=== PATIENT | male | born 1985 | race Caucasian/White ===

== ENCOUNTER 2018-09-12 17:30 | Observation (INO) | payer OTHER ==
[~2018-09-12] VITALS: Ht 177.8 cm; Wt 72.6 kg
--- OUTSIDE RECORDS SUMMARY | 2018-09-12 17:33 | XMS REPORT | Summary of Care ---
Author Author Blanca Cruz M.A. Unknown Address Unknown Phone Unavailable Care Team Providers Care Policy Analyst Name Role Phone RENATE Chirinos.Shelby., CHICHI Unavailable Unavailable OLAMIDE Castelan, ROSA Unavailable Unavailable KAR Schneider, AWA Unavailable Unavailable XU Castelan, CLAUDIA Unavailable Unavailable OLAMIDE JOHNS, ROSA Becker Unavailable Unavailable ANDREW JOHNS, EVA Robles Unavailable Unavailable JEF JOHNS CA, EDUARDO KELLEY Unavailable Unavailable KAR ANTONIO, AWA Unavailable Unavailable Unavailable Unavailable Functional Status Name Dates Details Functional status health issues are not documented Status: Name Dates Details Cognitive status health issues are not documented Status: Problems Name Dates Details Lumbar sprain (847.2, S33.5XXA) Status: Active Cervical sprain (847.0, S13.9XXA) Status: Active Psoriasis (696.1, L40.9) Status: Active Eyelid eczema (373.31, H01.139) Status: Active History of Rotator cuff (capsule) sprain (840.4, S43.429A) Status: Resolved Seasonal allergic rhinitis due to pollen (477.0, J30.1) Status: Active GERD (gastroesophageal reflux disease) (530.81, K21.9) Status: Active History of chest pain (V13.89, Z87.898) Status: Active Elevated blood pressure reading (796.2, R03.0) Status: Active Hypertension (401.9, I10) Status: Active Tachycardia (785.0, R00.0) Status: Active Shingles (053.9, B02.9) Status: Active Pharyngitis with viral syndrome (462, J02.9) Status: Active Left nephrolithiasis (592.0, N20.0) Status: Active Medications Name Dates Details ZyrTEC Allergy 10 MG Oral Capsule TAKE CAPSULE PRN Active Aquaphor External Ointment APPLY SPARINGLY TO AFFECTED AREA(S) 3 TIMES A DAY * Quantity: 1 Refills: 0 DEWITT N.P., CHICHI * Start : 22-Sep-2016 Active 50 GM Tube hydroCHLOROthiazide 12.5 MG Oral Capsule TAKE 1 CAPSULE ONCE DAILY. * Quantity: 90 Refills: 2 CLAUDIA MCNAIR M.D. * Start : 27-Mar-2017 Active Fluticasone Propionate 50 MCG/ACT Nasal Suspension USE 2 SPRAYS IN EACH NOSTRIL ONCE DAILY * Quantity: 1 Refills: 1 KAR Chirinos.PAWA Abarca * Start : 29-Aug-2018 Active 16 GM Bottle Benzonatate 100 MG Oral Capsule 1-2 caps as needed every 8 hours wit mucinex DM or Delsym OTC. * Quantity: 30 Refills: 1 KAR N.PAWA Abarca * Start : 29-Aug-2018 Active Acetaminophen-Codeine #3 300-30 MG Oral Tablet TAKE 1 TABLET 3 TIMES DAILY NEEDED FOR PAIN. * Quantity: 30 Refills: 0 OLAMIDE Mccarthy.Dickson, ROSA * Start : 12-Sep-2018 Active levoFLOXacin 500 MG Oral Tablet TAKE 1 TABLET DAILY. * Quantity: 7 Refills: 0 OLAMIDE Mccarthy.Dickson, ROSA * Start : 12-Sep-2018 End : 19-Sep-2018 Active Tamsulosin HCl - 0.4 MG Oral Capsule TAKE 1 CAPSULE DAILY * Quantity: 30 Refills: 0 OLAMIDE M.DTevin, ROSA * Start : 12-Sep-2018 Active Allergies and Adverse Reactions Name Dates Details No Known Drug Allergies (Allergy) Status: Active Past Medical History Name Dates Details Cervical sprain (847.0, S13.9XXA) Status: Active Psoriasis (696.1, L40.9) Status: Active History of bronchitis (V12.69, Z87.09) Status: Resolved History of chest pain (V13.89, Z87.898) Status: Resolved History of fever (V13.89, Z87.898) Status: Resolved History of Palpitations (785.1, R00.2) Status: Resolved History of Rotator cuff (capsule) sprain (840.4, S43.429A) Status: Resolved History of Sinusitis (473.9, J32.9) Status: Resolved History of Strep throat exposure (V01.89, Z20.818) Status: Resolved History of Viral URI (465.9, J06.9) Status: Resolved Procedures Procedure Dates Details CT Renal Stone 39163 Date: 12-Sep-2018 History of Tonsillectomy With Adenoidectomy Completed History of Renal Lithotripsy Completed Immunization Name Dates Details Fluzone Quadrivalent Intramuscular Suspension Lot #: [id number] on: 18-Jan-2015 Family History Name Dates Details Family history of Stroke Complications Status: Active Name Dates Details Family history of Hypertension (V17.49) Status: Active Family history of Diabetes Mellitus (V18.0) Status: Active Family history of cardiovascular disease (V17.49, Z82.49) Status: Active Name Dates Details Family history of Hypertension (V17.49) Status: Active Social History Name Dates Details - Status: Name Dates Details Never smoker Vital Signs Date Test Result Details 54-Ksf-49310:42 BP Systolic 130 mm[Hg] Status: Comments: Location: LUE; Position: Sitting BP Diastolic 80 mm[Hg] Status: Comments: Location: LUE; Position: Sitting Height 69 in Status: Weight 158 lb Status: Body Mass Index Calculated 23.33 kg/m2 Status: Body Surface Area Calculated 1.87 m2 Status: Temperature 98 f Status: Comments: Method: Temporal Respiration Rate 16 /min Status: Heart Rate 100 /min Status: 4-Zro-[id number]:06 Physical Findings 1 Status: Comments: PHQ-9 Adult Depression Screening 29-Aug-20189:42 BP Systolic 115 mm[Hg] Status: Comments: Location: LUE; Position: Sitting BP Diastolic 80 mm[Hg] Status: Comments: Location: LUE; Position: Sitting Height 69 in Status: Weight 157 lb Status: Body Mass Index Calculated 23.18 kg/m2 Status: Body Surface Area Calculated 1.86 m2 Status: Temperature 98.3 f Status: Comments: Method: Temporal Respiration Rate 16 /min Status: Heart Rate 102 /min Status: Comments: Location: L Brachial Artery; Physical Findings 0 Status: Comments: Alcohol Screen - How many times in the past yr have you had 5 (for M) or 4 (for F) or 4 (for all > 65yrs) or more drinks in a day? Results Date Description Value Details 9-Ouy-041922:08 [O] Streptococcus Test Rapid (In Office) Group A Strep Screen neg (Normal) Plan of Care Name Dates Details Planned Observations Planned Goals not documented Interventions Provided Medication Changes* Acetaminophen-Codeine #3 300-30 MG Oral Tablet - Start * levoFLOXacin 500 MG Oral Tablet - Start * Tamsulosin HCl - 0.4 MG Oral Capsule - Start Labs/Procedures/Imaging* CT Renal Stone 60075; To Be Done: 12 Sep 2018 Medications/Immunizations Administered* Promethazine HCl 25 MG/ML Injection Solution Plan* Hydration * ER precautions * will pickler helper pt from office and take his home * F/u prn Instructions Name Dates Details Instructions not documented Encounters Appointment; CHICHI DEWITT NP Encounter Diagnosis: Problem not documented On: 22-Sep-2016 15:15 Appointment; EMILY KAT M.D. Encounter Diagnosis: Problem not documented On: 27-Mar-2017 8:30 Appointment; CLAUDIA MCNAIR M.D. Encounter Diagnosis: Problem not documented On: 28-Mar-2017 14:20 Appointment; MANDISHORE-MS, STRESS Encounter Diagnosis: Problem not documented On: 02-May-2017 15:00 Appointment; [place]-MS, STRESS Encounter Diagnosis: Problem not documented On: 23-May-2017 14:00 Appointment; CLAUDIA MCNAIR M.D. Encounter Diagnosis: Problem not documented On: 23-May-2017 15:20 Appointment; AWA LAKHANI NP Encounter Diagnosis: Problem not documented On: 05-Jun-2017 9:00 Appointment; ANAMARIA HARRISON P.A. Encounter Diagnosis: Problem not documented On: 25-Oct-2017 13:15 Appointment; CHARMAINE CARTER M.D. Encounter Diagnosis: Problem not documented On: 11-Jan-2018 15:45 Appointment; CHARMAINE CARTER M.D. Encounter Diagnosis: Problem not documented On: 18-Jan-2018 13:45 Appointment; ROSA QUIÑONEZ M.D. Encounter Diagnosis: Problem not documented On: 05-Mar-2018 10:00 Appointment; ROSA QUIÑONEZ M.D. Encounter Diagnosis: Problem not documented On: 28-Mar-2018 11:15 Appointment; CLAUDIA MCNAIR M.D. Encounter Diagnosis: Problem not documented On: 18-Jun-2018 12:40 Appointment; AWA LAKHANI NP Encounter Diagnosis: Problem not documented On: 26-Jun-2018 14:30 Appointment; ROSA QUIÑONEZ M.D. Encounter Diagnosis: Problem not documented On: 06-Aug-2018 11:15 Appointment; AWA LAKHANI NP Encounter Diagnosis: Problem not documented On: 29-Aug-2018 9:30 Appointment; ROSA QUIÑONEZ M.D. Encounter Diagnosis: Problem not documented On: 12-Sep-2018 9:30
[2018-09-12] MEDS ORDERED: KETOROLAC TROMETHAMINE 60 MG/2 ML VIAL ONE (17:43)
[2018-09-12] MEDS ORDERED: PROMETHAZINE HCL (IM) 25 MG/ML VIAL ONE (17:45)
[2018-09-12] MEDS ORDERED: PROMETHAZINE HCL (IM) 25 MG/ML VIAL IM ONE (17:45)
[2018-09-12] MEDS ORDERED: KETOROLAC TROMETHAMINE 60 MG/2 ML VIAL IM ONE (17:45)
--- NOTE | 2018-09-12 17:54 | NUR ---
PER NO IV NEEDED. UA/MEDS/CT.
--- NOTE | 2018-09-12 19:13 | Diagnostic Imaging Report ---
EXAM: CT Abdomen and Pelvis WITHOUT contrast INDICATION: Left-sided pain. COMPARISON: None. TECHNIQUE: Abdomen and pelvis were scanned utilizing a multidetector helical scanner from the lung base to the pubic symphysis without administration of IV contrast. Absence of intravenous contrast decreases sensitivity for detection of focal lesions and vascular pathology. Coronal and sagittal reformations were obtained. Routine protocol was performed. IV CONTRAST: None ORAL CONTRAST: Water COMPLICATIONS: None RADIATION DOSE: Total DLP: 620.59 mGy*cm Estimated effective dose: (DLP x 0.015 x size factor) mSv CTDIvol has been reviewed. It is below the limits set by the Radiation Protocol Committee (RPC). FINDINGS: LINES and TUBES: None. LOWER THORAX: Unremarkable HEPATOBILIARY: Unenhanced liver is unremarkable. No biliary ductal dilation. GALLBLADDER: Several gallstones. No wall thickening. SPLEEN: No splenomegaly. PANCREAS: No focal masses or ductal dilatation. ADRENALS: No adrenal nodules KIDNEYS/URETERS: Moderate to severe left perinephric fat stranding and mild left hydroureteronephrosis, caused by an obstructive 5 mm left ureterovesical junction calculus. No right hydronephrosis. 3 mm right renal inferior pole calculus. GI TRACT: No abnormal distention, wall thickening, or evidence of bowel obstruction. Appendix is normal. PELVIC ORGANS/BLADDER: Unremarkable. LYMPH NODES: No lymphadenopathy. VESSELS: Unremarkable. PERITONEUM / RETROPERITONEUM: No free air or fluid. BONES: Unremarkable. SOFT TISSUES: Unremarkable. IMPRESSION: 1. 5 mm left ureterovesical junction obstructing calculus with mild to moderate left hydroureteronephrosis, perinephric and perivesical fat stranding. 2. 3 mm right renal nonobstructive calculus. 3. Cholelithiasis without CT evidence of cholecystitis. Signed by: Dr. Jesus Manuel Carrion MD on 09/12/2018 7:09 PM
[2018-09-12] MEDS ORDERED: KETOROLAC TROMETHAMINE 30 MG/ML VIAL IV PRN (20:00)
[2018-09-12] MEDS ORDERED: MORPHINE SULFATE 2 MG/ML SYR 1ML IV PRN (20:00)
--- OUTSIDE RECORDS SUMMARY | 2018-09-12 20:12 | XMS REPORT ---
Author Author [facility] Address Unknown Phone Unavailable Care Team Providers Care Sheeter Helper Name Role Phone Evan JIMENEZ Unavailable Unavailable Problems This patient has no known problems. Allergies, Adverse Reactions, Alerts This patient has no known allergies or adverse reactions. Medications This patient has no known medications. Results Test Description Test Time Test Comments Text Results Atomic Results Result Comments CT ABD/PEL WO CONTRAST-HOPD 2018-09-12 18:54:00 [facility] [address] [place] [address] Patient Name: MAX DE LEON MR #: [id number] : 1985 Age/Sex: 33/M Req #: [id number] Adm Physician: Ordered by: SYLVIE JIMENEZ MD Report #: [id number] Location: [facility] Room/Bed: Procedure: [id number] HOPD/CT ABD/PEL WO CONTRAST-HOPD Exam Date: 09/12/18 Exam Time: 1810 REPORT STATUS: Signed EXAM: CT Abdomen and Pelvis WITHOUT contrast INDICATION: Left-sided pain. COMPARISON: None. TECHNIQUE: Abdomen and pelvis were scanned utilizing a multidetector helical scanner from the lung base to the pubic symphysis without administration of IV contrast. Absence of intravenous contrast decreases sensitivity for detection of focal lesions and vascular pathology. Coronal and sagittal reformations were obtained. Routine protocol was performed. IV CONTRAST: None ORAL CONTRAST: Water COMPLICATIONS: None RADIATION DOSE: Total DLP: 620.59 mGy*cm Estimated effective dose: (DLP x 0.015 x size factor) mSv CTDIvol has been reviewed. It is below the limits set by the Radiation Protocol Committee (RPC). FINDINGS: LINES and TUBES: None. LOWER THORAX: Unremarkable HEPATOBILIARY: Unenhanced liver is unremarkable. No biliary ductal dilation. GALLBLADDER: Several gallstones. No wall thickening. SPLEEN: No splenomegaly. PANCREAS: No focal masses or ductal dilatation. ADRENALS: No adrenal nodules KIDNEYS/URETERS: Moderate to severe left perinephric fat stranding and mild left hydroureteronephrosis, caused by an obstructive 5 mm left ureterovesical junction calculus. No right hydronephrosis. 3 mm right renal inferior pole calculus. GI TRACT: No abnormal distention, wall thickening, or evidence of bowel obstruction. Appendix is normal. PELVIC ORGANS/BLADDER: Unremarkable. LYMPH NODES: No lymphadenopathy. VESSELS: Unremarkable. PERITONEUM / RETROPERITONEUM: No free air or fluid. BONES: Unremarkable. SOFT TISSUES: Unremarkable. IMPRESSION: 1. 5 mm left ureterovesical junction obstructing calculus with mild to moderate left hydroureteronephrosis, perinephric and perivesical fat stranding. 2. 3 mm right renal nonobstructive calculus. 3. Cholelithiasis without CT evidence of cholecystitis. Signed by: Dr. Jesus Manuel Anand MD on 09/12/2018 7:09 PM Dictated By: JESUS MANUEL ANAND MD 08 Transcribed By: REILLY on 09/12/181908 COPY TO: SYLVIE JIMENEZ MD
[2018-09-12] MEDS ORDERED: TAMSULOSIN HCL 0.4 MG CAP ONE (20:15)
--- NOTE | 2018-09-12 20:42 | NUR ---
Report received from Ace martinez [facility] on pt coming to room 181.
[2018-09-12 21:51] VITALS: BP 135/87
--- NOTE | 2018-09-12 21:52 | NUR ---
Pt received from [facility]. Pt A&O and in no apparent distress. Pt on room air and no tele. Pt at bedside. Pt states pain is very minimal and a 1 out of 10 currently. Pt to use urinal and stainer for all urine in bathroom. All safety measures ensured and pt call azar near. Pt encouraged to use call azar for assistance.
--- NOTE | 2018-09-12 21:56 | Consultation ---
DATE OF CONSULTATION: 09/12/2018 Urology Consultation REASON FOR CONSULTATION: Renal colic. HISTORY OF PRESENT ILLNESS: Drake Cassidy is a 33-year-old man with a previous history of urolithiasis. The patient had passed a kidney stone when he was in high school. He had another stone in 2010 and he underwent ESWL while he was living in [place]. The patient had some malaise for urinary irritation and frequency and some left flank discomfort for the last several days. It was very severe today and left-sided flank pain is radiating to the left groin and left testicle. He took Tylenol with codeine, which did very little for his pain. He reported to the emergency room, was evaluated and subsequently admitted. The patient denies any hematuria, dysuria, or urinary tract infections. He denies any other urological procedures. Prior urologists have not encouraged him to undergo metabolic stone workup as well as urological ongoing followup for stone prevention. PAST MEDICAL AND SURGICAL HISTORY: 1. Status post laparoscopic left inguinal herniorrhaphy. 2. Status post tonsillectomy and septoplasty. 3. [place] teeth extraction. 4. History of hypertension and was medicated, but after exercise and weight loss, the patient became normotensive and medication was discontinued. SOCIAL HISTORY: The patient denies smoking, ethanol, or drug use. He works at night. He has supportive at the bedside. They have 2 children. FAMILY HISTORY: Noncontributory to the active urological problems. CURRENT MEDICATIONS: Normally none. ALLERGIES: NONE KNOWN. REVIEW OF SYSTEMS: Discussed as above in history of present illness and past medical history, otherwise negative for all systems. PHYSICAL EXAMINATION: GENERAL: Healthy-appearing 33-year-old man sitting up in bed, in no apparent distress. VITAL SIGNS: He is currently afebrile. Vital signs are currently stable. ABDOMEN: Soft, nondistended. He has slight left-sided costovertebral angle tenderness. Kidneys are not palpable without hepatosplenomegaly. No obvious evidence of hernia. GENITOURINARY: Testes descended bilaterally. Testes and epididymides bilaterally palpably normal. The patient has a normal circumcised male phallus with normal meatus without any lesion. Digital rectal examination is deferred at the present time. For the remaining physical examination systems, please refer to the ERT sheet as well as the admission history and physical. LABORATORY STUDIES: CT scan of the abdomen and pelvis showed a 5 mm distal left ureteral stone with left-sided hydroureteronephrosis. The patient has a 3 mm nonobstructing right renal stone in the lower pole. Urinalysis showed trace blood and microscopy is pending. ASSESSMENT: 1. Left renal colic. 2. Microscopic hematuria. 3. Left ureterolithiasis. 4. Right nephrolithiasis. 5. Left hydroureteronephrosis. 6. History of prior urolithiasis. 7. Nausea and vomiting, now controlled. PLAN: 1. The patient has already failed outpatient management. He failed to control his pain with oral analgesics. 2. I offered the patient the option of hydration and stone passage trial for several days versus initial stone passage trial if he fails to pursue endoscopic intervention. The patient elected to proceed with the latter option. Therefore, I will post the patient for tomorrow for cystoscopy, retrograde pyelogram, insertion of stents, possible ureteroscopy with holmium laser lithotripsy. Should the patient pass the stone and have no symptomatology, we will consider cancelling the procedure. 3. Intravenous antibiotics. 4. Intravenous hydration. 5. Strain all the urine. Thank you very much for involving us in the care of your patient. We will be happy to follow him along with you as well as an outpatient. Pancho Jimenez MD [place]/MODL /[id number] cc: Chanda Martinez MD
[2018-09-12 22:30] VITALS: BP 135/87
[2018-09-12 22:33] VITALS: BP 135/87
[2018-09-12] MEDS: SODIUM CHLORIDE 0.9% 1000ML 1,000 ML IV SCH (23:00)
[2018-09-13] VITALS: BP 128/77
[2018-09-13 04:00] VITALS: BP 128/85
[2018-09-13 06:17] LABS: BASOPHILS % 0.1 % (0.0-1.0); EOSINOPHILS # (AUTO) 0.2 (0.0-0.4); EOSINOPHILS % 1.4 % (0.0-6.0); HEMATOCRIT 39.5 % (38.2-49.6); HEMOGLOBIN 13.7 g/dL (14.0-18.0); LYMPHOCYTES # (AUTO) 1.4 (1.0-3.2); LYMPHOCYTES % 9.9 % (18.0-39.1); MEAN CORPUSCULAR HGB CONC 34.7 g/dL (31-35); MEAN CORPUSCULAR VOLUME 86.4 fL (81-99); MONOCYTES # (AUTO) 1.5 (0.2-0.8); MONOCYTES % 10.6 % (4.4-11.3); NEUTROPHILS # (AUTO) 10.9 (2.1-6.9); NEUTROPHILS % 77.5 % (38.7-80.0); PLATELET COUNT 205 x10e3/uL (140-360); RED BLOOD COUNT 4.57 x10e6/uL (4.3-5.7)
--- NOTE | 2018-09-13 06:25 | NUR ---
Pt left unit for surgery
[2018-09-13 06:33] LABS: ANION GAP 11.8 mmol/L (8-16); BLOOD UREA NITROGEN 14 mg/dL (7-26); BUN/CREATININE RATIO 11 (6-25); CARBON DIOXIDE 23 mmol/L (22-29); CHLORIDE 109 mmol/L (98-107); CREATININE, SERUM 1.31 mg/dL (0.72-1.25); EST GLOMERULAR FILTRATION RATE > 60 ML/MIN (60-); GLUCOSE 98 mg/dL (74-118); POTASSIUM 3.8 mmol/L (3.5-5.1); SODIUM 140 mmol/L (136-145)
[2018-09-13] MEDS ORDERED: IOPAMIDOL 610MG/1ML 300 MG/ML VIAL IV ONE (06:36)
[2018-09-13] MEDS ORDERED: B&O 60MG R/S 60 MG SUPP PR ONE (06:36)
[2018-09-13] MEDS ORDERED: ACETAMINOPHEN/CODEINE 300MG - 30MG TAB PO PRN (08:00)
[2018-09-13] MEDS: OXYBUTYNIN CHLORIDE 5 MG TAB PO SCH ×2 (09:22→15:14)
[2018-09-13] MEDS: PHENAZOPYRIDINE HCL 100 MG TAB PO SCH ×2 (09:22→15:13)
[2018-09-13 09:26] VITALS: BP 122/82
[2018-09-13 09:33] VITALS: BP 122/82
--- NOTE | 2018-09-13 10:49 | Discharge Summary ---
FINAL DIAGNOSES: 1. Left hydronephrosis secondary to left ureteral stone with strictures. 2. Status post left ureteroscopy with dilatation of strictures and left stent placement. SUMMARY: The patient is a 33-year-old male with kidney stones. He had a right nonobstructing kidney stone and a left kidney stone of 5 mm with UPJ obstruction. He is status post cystoscopy. Stone was not seen on cystoscopy, but however, he does have the strictures. The patient has stent placement after dilatation. The patient has been cleared by Dr. Jimenez for discharge home. DISCHARGE MEDICATIONS: Continue with home medication Levaquin or antibiotics. New prescription for Tylenol No 3 p.r.n. for pain, Ditropan 5 mg t.i.d. for bladder spasms, Celebrex 200 mg twice a day as needed for pain, and Zofran ODT 4 mg sublingual q.4 hours as needed for nausea and vomiting. The patient is stable and discharged home today. Follow up with Dr. Pancho Jimenez for post cystoscopy retrograde pyelogram and stent placement to the left UPJ area after the dilatation of the strictures. The patient is stable for discharge home today. MD VANESSA Lima/PE[place] /[id number]
[2018-09-13 12:30] VITALS: BP 130/86
[2018-09-13] MEDS: SODIUM CHLORIDE 0.9% 1000ML 1,000 ML IV SCH (12:35)
[2018-09-13] MEDS ORDERED: FENTANYL CITRATE/PF 100MCG/2 ML INJ ONE (13:05)
[2018-09-13] MEDS ORDERED: MIDAZOLAM HCL 2 MG/2 ML VIAL ONE (13:05)
[2018-09-13] MEDS ORDERED: CELEBREX100 MG PO (15:34)
[2018-09-13] MEDS ORDERED: ZOFRAN8 MG SL (15:35)
[2018-09-13] MEDS ORDERED: TYLENOL # 31 EA PO (15:36)
[2018-09-13] MEDS ORDERED: DITROPAN XL5 MG PO (15:37)
[2018-09-13] MEDS ORDERED: SEVOFLURANE INHAL SOLN 250 ML PEN BTL ONE (17:34)
[2018-09-13] MEDS ORDERED: DEXAMETHASONE SOD PHOS INJ 4 MG/ML VIAL ONE (17:34)
[2018-09-13] MEDS ORDERED: LIDOCAINE HCL 2% LOCAL INJ 5 ML SDV VIAL INJ ONE (17:34)
[2018-09-13] MEDS ORDERED: ONDANSETRON HCL INJ 2MG/ML 2ML 2 MG/ML VIAL ONE (17:34)
[2018-09-13] MEDS ORDERED: PROPOFOL IV EMULSION 10 MG/ML 20 ML VIAL ONE (17:34)
[2018-10-25] MEDS ORDERED: ADVIL200 MG (11:49)
[2018-10-25] MEDS ORDERED: AZO CRANBERRY1 EACH (11:49)
[2018-10-28] MEDS ORDERED: AZO STANDARD95 MG PO (05:26)
--- NOTE | 2018-10-29 08:04 | Operative Report ---
DATE OF PROCEDURE: 09/13/2018 SURGEON: Pancho Jimenez MD PREOPERATIVE DIAGNOSES: 1. Left-sided hydronephrosis. 2. Microscopic hematuria. POSTOPERATIVE DIAGNOSES: 1. Left-sided hydronephrosis. 2. Microscopic hematuria. 3. Left ureteral stricture. OPERATIONS PERFORMED: 1. Cystourethroscopy with bilateral ureteral catheterization and retrograde ureteropyelography (separate procedure performed for microhematuria). 2. Interpretation of retrograde ureteropyelography. 3. Supervision of fluoroscopy, no radiologist present. 4. Left ureteroscopy with dilation of ureteral stricture (separate procedure performed for further diagnosis of the ureteral stricture).Radiological services with supervision and interpretation of ureteroscopy. 5. Cystourethroscopy and insertion of left indwelling ureteral stent (separate procedure performed to relieve hydronephrosis. ANESTHESIA: General. COMPLICATIONS: None. CLINICAL SUMMARY: Drake Cassidy is a 33-year-old man with the above preoperative diagnoses. He was brought for the above procedures. He is aware of the risks of bleeding, infection, injury to adjacent structures, need for additional procedures and elected to proceed. OPERATIVE PROCEDURE IN DETAIL: Informed consent was verified. Drake Cassidy was properly identified and taken to the operating room and placed on the cystoscopy table in supine position. Anesthesia was uneventfully begun. The patient was then carefully gently repositioned in the dorsal lithotomy position with all pressure points well padded. His genitalia were prepared and draped in usual sterile fashion. A 22.5-Azeri cystoscope sheath with the visual obturator in place, was atraumatically inserted into the patient's urethra, it was guided unremarkably. Urethra through the wide caliber scarring at the bulbar region, which was not obstructing through the normal sphincteric region through the prostatic bed, which was unremarkable into the patient's bladder. Panendoscopy revealed no suspicious mucosal lesions, no tumors, no stones, and no diverticula, normally positioned configured ureteral orifices were identified. An 8-Azeri catheter was used to cannulate each ureter and retrograde ureteropyelogram was performed. Interpretation of retrograde ureteropyelography, the contrast was instilled in a retrograde fashion bilaterally on the right-hand side. There were no tumors and no diverticula. I could not visualize the lower pole 3 mm stone well first under fluoroscopy today. On the left-hand side, there was hydroureteronephrosis down to the region of obstruction at the distal ureter. A guidewire was then placed into the left ureter and guided to the level of the patient's kidney. The semi-rigid ureteroscope was then placed alongside the guidewire and guided into the ureter. No stone was visualized, but there was ureteral stricture. We gently dilated across this ureteral stricture utilizing the ureteroscope as a dilator sheath. Once this was accomplished under direct vision, the cystoscope was withdrawn. Under cystoscope and fluoroscopic guidance, a left sided indwelling ureteral stent was then placed, it was coiled in the patient's kidney as well as the patient's bladder, the retaining suture was cut short. The patient's bladder was drained. The cystoscope was withdrawn. Belladonna and opium suppository were placed. The patient was then uneventfully reversed from anesthesia and taken to recovery room in stable condition. There were no complications to the procedure. He tolerated the procedure well. Plans will be to discharge the patient, of course monitor and return him back to the operating room after a month to remove his stent and evaluate for any recurrence of his stricture. The 5 mm stone noted on CT was not visualized ureteroscopically to distal ureter. It may be presumed as past. Pancho Jimenez MD [place]/[facility] /[id number] cc: Chanda Martinez MD
== END 2018-09-13 16:18 | disposition home or self-care (01) ==
LOC: FSED 17:30 → ERHOLD 20:04 → IMCU 21:54
PROVIDERS: ADMIT Internal Medicine; ATTEND Internal Medicine
DX: N13.2 Hydronephrosis with renal and ureteral calculous obstruction (principal); I10 Essential (primary) hypertension; Z87.442 Personal history of urinary calculi; N17.9 Acute kidney failure, unspecified; D64.9 Anemia, unspecified; R31.29 Other microscopic hematuria; N13.1 Hydronephrosis with ureteral stricture, not elsewhere classified; D72.829 Elevated white blood cell count, unspecified
CPT/HCPCS: 36415; 52332; 52344; 74176; 74420; 80048; 81003; 83970; 84550; 85025; 99284 ×2; C1758; C2617; G0378 ×2; J1100; J1885 ×2; J2001; J2250; J2270; J2405; J2550; J2704; J7030 ×2; Q9967; J3010

== ENCOUNTER 2018-10-09 20:17 | Inpatient (IN) | payer OTHER ==
[~2018-10-09] VITALS: Ht 177.8 cm; Wt 74.9 kg
[~2018-10-09 20:17] MED LIST: CELEBREX100 MG PO; DITROPAN XL5 MG PO; TYLENOL # 31 EA PO; ZOFRAN8 MG SL
[2018-10-09] MEDS ORDERED: SODIUM CHLORIDE 0.9% 1000ML 1,000 ML IV STA ×2 (20:23→22:04)
[2018-10-09] MEDS ORDERED: ONDANSETRON HCL INJ 2MG/ML 2ML 2 MG/ML VIAL IV PRN ×2 (20:30→22:00)
[2018-10-09] MEDS ORDERED: MORPHINE SULFATE INJ 4 MG/ML INJ 1ML IV PRN (20:30)
[2018-10-09] MEDS ORDERED: ACETAMINOPHEN 325 MG TAB ONE (20:39)
[2018-10-09] MEDS ORDERED: ACETAMINOPHEN 325 MG TAB PO ONE (20:44)
[2018-10-09] MEDS ORDERED: CEFEPIME 1GM/NS 0.9% 50 ML 50 ML IV ONE (20:45)
[2018-10-09 20:48] LABS: BASOPHILS % 0.1 % (0.0-1.0); EOSINOPHILS % 0.2 % (0.0-6.0); HEMATOCRIT 40.3 % (38.2-49.6); HEMOGLOBIN 13.9 g/dL (14.0-18.0); LYMPHOCYTES # (AUTO) 0.5 (1.0-3.2); LYMPHOCYTES % 5.8 % (18.0-39.1); MEAN CORPUSCULAR HEMOGLOBIN 29.8 pg (28-32); MEAN CORPUSCULAR HGB CONC 34.5 g/dL (31-35); MEAN CORPUSCULAR VOLUME 86.3 fL (81-99); MONOCYTES # (AUTO) 1.5 (0.2-0.8); NEUTROPHILS # (AUTO) 6.7 (2.1-6.9); NEUTROPHILS % 76.7 % (38.7-80.0); PLATELET COUNT 196 x10e3/uL (140-360); RED BLOOD COUNT 4.67 x10e6/uL (4.3-5.7); RED CELL DISTRIBUTION WIDTH 12.8 % (11.7-14.4)
--- NOTE | 2018-10-09 20:48 | NUR ---
PT STATES NOT HAVING PAIN AT PRESENT. ONLY MILDLY NAUSEATED. MEDICATED PER ORDERS. AWAKE ALERT SKIN W/D RESP NONLAB. NAD NOTED.
[2018-10-09 20:54] LABS: BILIRUBIN,URINE MODERATE (NEGATIVE); CLARITY,URINE CLOUDY (CLEAR); COLOR,URINE BROWN (YELLOW); KETONES,URINE TRACE (NEGATIVE); LEUKOCYTE ESTERASE ,URINE SMALL (NEGATIVE); NITRITE,URINE POSITIVE (NEGATIVE)
[2018-10-09] MEDS ORDERED: OXYBUTYNIN CHLOR5 MG PO (20:54)
[2018-10-09 20:55] LABS: PROTEIN,URINE DIPSTICK 2+ (NEGATIVE)
[2018-10-09 21:06] LABS: RBC,URINE >50 /HPF (0-5)
[2018-10-09 21:07] LABS: BACTERIA,URINE FEW /HPF; EPITHELIAL CELLS,URINE FEW /LPF
[2018-10-09 21:07] LABS: ALANINE AMINOTRANSFERASE 19 IU/L (0-55); ALBUMIN 4.1 g/dL (3.5-5.0); ALBUMIN/GLOBULIN RATIO 1.5 (0.8-2.0); ALKALINE PHOSPHATASE 105 IU/L (40-150); ANION GAP 12.8 mmol/L (8-16); BLOOD UREA NITROGEN 15 mg/dL (7-26); BUN/CREATININE RATIO 15 (6-25); CALCIUM 9.2 mg/dL (8.4-10.2); CARBON DIOXIDE 23 mmol/L (22-29); CHLORIDE 104 mmol/L (98-107); EST GLOMERULAR FILTRATION RATE > 60 ML/MIN (60-); GLUCOSE 110 mg/dL (74-118); POTASSIUM 3.8 mmol/L (3.5-5.1); SODIUM 136 mmol/L (136-145)
--- NOTE | 2018-10-09 21:25 | Diagnostic Imaging Report ---
EXAM: CT Abdomen and Pelvis WITHOUT contrast INDICATION: Left flank pain. ^STONE PROTOCOL ^[id number] ^2056 ^Y COMPARISON: CT dated 09/12/2018 TECHNIQUE: Abdomen and pelvis were scanned utilizing a multidetector helical scanner from the lung base to the pubic symphysis without administration of IV contrast. Absence of intravenous contrast decreases sensitivity for detection of focal lesions and vascular pathology. Coronal and sagittal reformations were obtained. Routine protocol was performed. IV CONTRAST: None ORAL CONTRAST: Water COMPLICATIONS: None RADIATION DOSE: Total DLP: 228.91 mGy*cm Estimated effective dose: (DLP x 0.015 x size factor) mSv CTDIvol has been reviewed. It is below the limits set by the Radiation Protocol Committee (RPC). FINDINGS: LINES and TUBES: Left nephroureteral stent. LOWER THORAX: Unremarkable HEPATOBILIARY: Unenhanced liver is unremarkable. No biliary ductal dilation. GALLBLADDER: Cholelithiasis. No wall thickening. SPLEEN: No splenomegaly. PANCREAS: No focal masses or ductal dilatation. ADRENALS: No adrenal nodules KIDNEYS/URETERS: No hydronephrosis. Exophytic subcentimeter left inferior pole hypodensities too small to characterize. 3 mm right renal inferior pole calculus. Left nephroureteral stent in place. There is left periureteral fat stranding. No left renal or ureteral stone. GI TRACT: No abnormal distention, wall thickening, or evidence of bowel obstruction. Appendix is normal. PELVIC ORGANS/BLADDER: Unremarkable. LYMPH NODES: No lymphadenopathy. VESSELS: Unremarkable. PERITONEUM / RETROPERITONEUM: No free air or fluid. BONES: Unremarkable. SOFT TISSUES: Evidence of left inguinal hernia repair. IMPRESSION: 1. Status post left nephroureteral stent placement with interval resolution of the previously seen left hydroureteronephrosis and perinephric edema. There is mild residual left periureteral fat stranding. No left renal or ureteral stone visualized on current exam. 2. Unchanged subcentimeter nonobstructive right renal inferior pole calculus. 3. Cholelithiasis without evidence of cholecystitis. Signed by: Dr. Jesus Manuel Carrion MD on 10/09/2018 9:22 PM
[2018-10-09] MEDS ORDERED: IBUPROFEN 600 MG TAB PO STA (21:52)
[2018-10-09] MEDS ORDERED: SODIUM CHLORIDE 0.9% 1000ML 1,000 ML ONE (21:56)
[2018-10-09] MEDS ORDERED: IBUPROFEN 400 MG TAB ONE (21:56)
[2018-10-09] MEDS ORDERED: MORPHINE SULFATE 2 MG/ML SYR 1ML IV PRN (22:00)
[2018-10-09] MEDS ORDERED: SODIUM CHLORIDE 0.9% 1000ML 1,000 ML IV ONE (22:00)
[2018-10-09] MEDS: PIPER-TAZ 3.375 GM 50 ML IV SCH (22:03)
[2018-10-09] MEDS ORDERED: IBUPROFEN 400 MG TAB PO STA (22:10)
[2018-10-09 22:39] VITALS: BP 115/70
[2018-10-09] MEDS: SODIUM CHLORIDE 0.9% 1000ML 1,000 ML IV SCH (23:06)
[2018-10-10] VITALS (9 sets, daily range): BP systolic 115–151; BP diastolic 70–91
[2018-10-10] MEDS: PIPER-TAZ 3.375 GM 50 ML IV SCH ×3 (05:57→22:01)
[2018-10-10] MEDS: SODIUM CHLORIDE 0.9% 1000ML 1,000 ML IV SCH ×2 (05:57→15:41)
--- NOTE | 2018-10-10 07:00 | NUR ---
BEDSIDE SHIFT REPORT RECEIVED FROM THE MANAGER INCOME TAX RN. PT DENIES NEEDS AT THIS TIME.
--- NOTE | 2018-10-10 10:01 | Diagnostic Imaging Report ---
EXAMINATION: PA and lateral views of the chest. COMPARISON: None CLINICAL HISTORY: Fever DISCUSSION: Lines/tubes: None. Lungs: The lungs are well inflated and clear. There is no evidence of pneumonia or pulmonary edema. Pleura: There is no pleural effusion or pneumothorax. Heart and mediastinum: The cardiomediastinal silhouette is normal. Bones and soft tissues: No acute bony abnormalities. Degenerative changes in the thoracic spine IMPRESSION: No acute cardiopulmonary abnormalities. Signed by: Dr. Yung Swanson M.D. on 10/10/2018 9:58 AM
--- NOTE | 2018-10-10 19:00 | NUR ---
BEDSIDE SHIFT REPORT GIVEN TO THE SUPERVISOR ALUM PLANT RN. PT DENIED FURTHER NEEDS.
[2018-10-11] MEDS: SODIUM CHLORIDE 0.9% 1000ML 1,000 ML IV SCH ×2 (02:19→11:00)
[2018-10-11 04:52] VITALS: BP 134/89
[2018-10-11] MEDS: PIPER-TAZ 3.375 GM 50 ML IV SCH (05:49)
--- NOTE | 2018-10-11 07:30 | NUR ---
REC'D PATIENT AAOX3, SITTING UP IN BED, ON ROOM AIR, NO S/S OF DISTRESS NOTED, IV TO THE RIGHT AC 20 GAUGE WITH NO COMPLICATIONS. BED IN LOWEST POSITION, SIDE RAILS UP X2, AND CALL LERMA WITHIN REACH.
--- NOTE | 2018-10-11 07:50 | NUR ---
DR. DANG ASKED TO CONSULT DR. VARELA TO SEE IF DR. VARELA CAN PRESCRIBE ORAL ANTIBIOTICS FOR PATIENT. PAGED DR. VARELA. DR. VARELA CALLED BACK AND HE SAID HE WOULD SEE WHAT HE CAN DO. NO OTHER ORDERS ORDERED.
[2018-10-11 08:36] VITALS: BP 139/85
[2018-10-11 12:08] VITALS: BP 144/85
[2018-10-11] MEDS ORDERED: ONDANSETRON ODT8 MG SL (15:01)
[2018-10-11] MEDS ORDERED: ZOFRAN4 MG PO (15:01)
[2018-10-11] MEDS ORDERED: TYLENOL WITH C1 EACH PO (15:03)
[2018-10-11] MEDS ORDERED: BACTRIM DS TAB1 EACH PO (15:06)
[2018-10-11] MEDS ORDERED: CIPRO500 MG PO (15:06)
--- NOTE | 2018-10-11 17:16 | NUR ---
PROVIDED AND EXPLAINED DISCHARGE PAPERS AND PRESCRIPTIONS. PATIENT UNDERSTOOD THAT HE NEEDS TO FOLLOW UP WITH DR. VARELA, DR. DANG, AND PATIENT'S PCP IN 1-2 WEEKS. IV D/C AND NO COMPLICATIONS TO SITE. ESCORTED PATIENT AND FAMILY TO CAR. Addendum: 10/11/18 at 1716 by ERNA VALENTINE RN DISCHARGE TIME AT 1545
--- NOTE | 2018-10-11 21:25 | Consultation ---
DATE OF CONSULTATION: REASON FOR CONSULTATION: UTI, recommendation for antibiotic. HISTORY OF PRESENT ILLNESS: This patient is very pleasant 33-year-old male. A month ago, he had a renal stone in the left side, underwent lithotripsy and stent placement. He was doing well until about 2 days ago when he had fever and chills. The patient was sent to the emergency room, started on IV antibiotic. His urine culture is negative. There are no blood cultures. The patient is feeling better, but I was asked to see him to make recommendation to his antibiotic. The patient has been on Zosyn. REVIEW OF SYSTEMS: At the present time: HEENT: Negative. PULMONARY: Negative. CARDIAC: Negative. : Negative. GI: Negative. SKIN: There are no rashes. LABORATORY DATA: Also reviewed. PHYSICAL EXAMINATION: GENERAL: He is currently alert, oriented, does not seem to be in acute distress. VITAL SIGNS: Stable, currently afebrile. HEENT: He is not icteric. NECK: Supple. CHEST: Clear. HEART: S1 and S2. No S3, S4, or murmur. ABDOMEN: Soft. Bowel sounds present. EXTREMITIES: No edema. SKIN: No rash. IMPRESSION: Urinary tract infection with pyelonephritis in the patient, who has a stent, cultures negative, doing well. The patient wants to go to [place] today, so I am going to recommend to put him on Cipro and Bactrim since he is doing well for 2 weeks. He is coming back in 1 week, to push p.o. fluid, to see me back in 2 weeks, but I want him should he have fever or chills on oral antibiotic, he should be going to emergency room to be admitted for IV antibiotic since there is always risk of resistant pathogen. The patient understood that completely. Discussed with Dr. Pancho Jimenez. We will follow with you. MD KARTHIK Patel/PEYTON /[id number]
== END 2018-10-11 15:35 | disposition home or self-care (01) | DRG 699 ==
LOC: ER 20:17 → ERHOLD 22:21 → MED/SURG2 22:42
PROVIDERS: ADMIT Internal Medicine; ATTEND Internal Medicine
DX: T83.592A Infection and inflammatory reaction due to indwelling ureteral stent, initial encounter (principal); N10 Acute pyelonephritis; N30.01 Acute cystitis with hematuria; Z87.442 Personal history of urinary calculi; Z96.0 Presence of urogenital implants; K80.20 Calculus of gallbladder without cholecystitis without obstruction
CPT/HCPCS: 36415; 71046; 74176; 80053; 81001; 85025; 87086; 99284; J0692; J2270; J2405; J2543; J7030

== ENCOUNTER → 2018-10-28 | Day surgery (SDC) | payer OTHER ==
--- NOTE | 2018-10-25 12:53 | Diagnostic Imaging Report ---
Exam: KUB - 2 views Clinical History: Preoperative Comparison: CT abdomen and pelvis of 10/09/2018 Findings: There is a 3 mm calcific density at the right kidney lower pole corresponding with punctate nonobstructive calculus seen on CT of 10/09/2018. No additional renal calculi identified. Left nephroureteral stent in unchanged position. Nonobstructive bowel gas pattern. Osseous structures appear unremarkable. Impression: Right lower pole 3 mm renal calculus. Signed by: Salazar Perez MD on 10/25/2018 12:50 PM
[~2018-10-28] MED LIST changes: +ADVIL200 MG; +AZO CRANBERRY1 EACH; +AZO STANDARD95 MG PO; +B&O 60MG R/S 60 MG SUPP PR ONE; +BACTRIM DS TAB1 EACH PO; +CIPRO500 MG PO; +DEXAMETHASONE SOD PHOS INJ 4 MG/ML VIAL ONE; +FENTANYL CITRATE/PF 100MCG/2 ML INJ ONE; +IOPAMIDOL 610MG/1ML 300 MG/ML VIAL IV ONE; +LIDOCAINE HCL 2% LOCAL INJ 5 ML SDV VIAL INJ ONE; +MIDAZOLAM HCL 2 MG/2 ML VIAL ONE; +ONDANSETRON HCL INJ 2MG/ML 2ML 2 MG/ML VIAL ONE; +ONDANSETRON ODT8 MG SL; +OXYBUTYNIN CHLOR5 MG PO; +PIPER-TAZ 3.375 GM 50 ML ONE; +PROPOFOL IV EMULSION 10 MG/ML 20 ML VIAL ONE; +SEVOFLURANE INHAL SOLN 250 ML PEN BTL ONE; +TYLENOL WITH C1 EACH PO; +ZOFRAN4 MG PO
[2018-10-28 09:00] VITALS: BP 138/98
--- NOTE | 2018-12-16 01:57 | Operative Report ---
DATE OF PROCEDURE: 10/28/2018 SURGEON: Pancho Jimenez MD PREOPERATIVE DIAGNOSES: 1. Left ureterolithiasis. 2. Left indwelling ureteral stent. POSTOPERATIVE DIAGNOSES: 1. Left ureterolithiasis. 2. Left indwelling ureteral stent. OPERATION PERFORMED: 1. Cystourethroscopy with complicated removal of left indwelling ureteral stent (separate procedure performed with separate scope for the diagnosis of stent). 2. Left ureteroscopy with stone manipulation (separate procedure performed for the left ureterolithiasis). 3. Radiological services with supervision and interpretation of ureteroscopy. 4. Interpretation of retrograde ureteropyelography. 5. Supervision of fluoroscopy, no radiologist present. ANESTHESIA: General. COMPLICATIONS: None. CLINICAL SUMMARY: Drake Cassidy is a 33-year-old male with left indwelling ureteral stent. He has a history of left ureterolithiasis as well as left ureteral stricture. He is brought for the above procedures. He is aware of the risks of bleeding, infection, injury to adjacent structures, need for additional procedures and elected to proceed. OPERATIVE PROCEDURE IN DETAIL: Informed consent was verified. Drake Cassidy was properly identified, taken to the operating room, placed on the cystoscopy table in supine position. Anesthesia was uneventfully begun. The patient was then carefully gently repositioned in the dorsal lithotomy position with all pressure points well padded. His genitalia were prepped and draped in usual sterile fashion. The cystoscope sheath with the visual obturator in place was atraumatically inserted in the patient's urethra. It was guided down the unremarkable distal urethra through the normal sphincteric region. There are normal prostatic regions into the patient's bladder. Panendoscopy revealed left indwelling ureteral stent emerging from the left ureteral orifice. It was not encrusted. A guidewire was then placed alongside the stent and guided to the level of the patient's kidney the stent was then grasped, completely removed and discarded. Semi-rigid ureteroscope was then placed alongside the guidewire and guided into the left ureter and was atraumatically advanced alongside the guidewire up into the level of the mid ureter. We identified small sand. The sand was dislodged. However, it was too small to grasp with a basket, but it was manipulated loose from the mucosa so it may easily pass. Flexible ureteroscope was then placed over the guidewire and guided to the level of the patient's kidney. The guidewire was removed. Panendoscopy of the intrarenal collecting system revealed Patrick's plaques throughout, but there were no suspicious mucosal lesions. There were no tumors, no stones. We carefully re-examined the ureter as we exited it. It exhibited no strictures, no stones, no suspicious lesions. The patient's bladder was drained. Cystoscope was withdrawn. A belladonna and opium suppository were placed revealing small prostate nonfluctuant without any nodules. The patient was uneventfully reversed from anesthesia and taken to recovery room in stable condition. There were no complications of the procedure. The patient tolerated the procedure well. Explicit postoperative instructions were given. Interpretation of retrograde ureteropyelography: Contrast was instilled in retrograde fashion bilaterally. The ureteroscope was left inside. There filling defects. There were no suspicious lesions. PLAN: Plan will be to follow the patient up on a long-term basis. Also in the future, we will plan on performing a right ESWL to manage the patient's residual right stone. Pancho Jimenez MD [place]/[facility] /[id number]
== END | disposition home or self-care (01) ==
LOC: OR 05:00
PROVIDERS: ATTEND Urology
DX: N20.1 Calculus of ureter (principal); N28.89 Other specified disorders of kidney and ureter; Z46.6 Encounter for fitting and adjustment of urinary device; I10 Essential (primary) hypertension; Z01.810 Encounter for preprocedural cardiovascular examination
CPT/HCPCS: 52352; 74018; 74420; 87086; 93005; J1100; J2001; J2250; J2405; J2543; J2704; Q9967; J3010

== ENCOUNTER → 2019-01-31 | Day surgery (SDC) | payer OTHER ==
--- NOTE | 2019-01-30 15:26 | Diagnostic Imaging Report ---
Abdomen, 1 view. History: Preop, lithotripsy. Comparison: 10/25/2018. Findings: Air is scattered throughout nondilated small and large bowel. Left internal ureteral stent is no longer present. No renal stones are identified. The osseous structures are intact. IMPRESSION: Non-specific bowel gas pattern. Signed by: Levy Soriano on 01/30/2019 3:23 PM
[2019-01-30 15:43] LABS: ANION GAP 15.8 mmol/L (8-16); BLOOD UREA NITROGEN 17 mg/dL (7-26); BUN/CREATININE RATIO 20 (6-25); CALCIUM 9.7 mg/dL (8.4-10.2); CARBON DIOXIDE 24 mmol/L (22-29); CHLORIDE 103 mmol/L (98-107); CREATININE, SERUM 0.85 mg/dL (0.72-1.25); EST GLOMERULAR FILTRATION RATE > 60 ML/MIN (60-); GLUCOSE 87 mg/dL (74-118); POTASSIUM 3.8 mmol/L (3.5-5.1); SODIUM 139 mmol/L (136-145)
[~2019-01-31] MED LIST changes: +ACETAMINOPHEN/CODEINE 300MG - 30MG TAB ONE; +CEFTRIAXONE SOD 1 GM/NS 50 ML 50 ML IV ONE; +HYDROCHLOROTHIA25 MG PO; +IOPAMIDOL 300MG/ML 50ML INFUS..BTL IV ONE; -IOPAMIDOL 610MG/1ML 300 MG/ML VIAL IV ONE; -PIPER-TAZ 3.375 GM 50 ML ONE
--- OUTSIDE RECORDS SUMMARY | 2019-01-31 08:36 | XMS REPORT | Summary of Care ---
Author Author Margaret Hernandez M.A. Organization Unknown Address [facility] Phone Unavailable Care Team Providers Care Car Body Designer Name Role Phone RENATE Schneider, CHICHI Unavailable Unavailable OLAMIDE Castelan, ROSA Unavailable Unavailable David Parra, Margaret [place] Unavailable Unavailable LAKHANI N.P., AWA Unavailable Unavailable XU Castelna, CLAUDIA Unavailable Unavailable ERI N.Ras, EMANUEL Unavailable Unavailable OLAMIDE JOHNS, ROSA Becker Unavailable Unavailable ANDREW JOHNS, EVA Robles Unavailable Unavailable JEF JOHNS ND, EDUARDO KELLEY Unavailable Unavailable LAKHANI DIRECTOR OF SAFETY, AWA Unavailable Unavailable Unavailable Unavailable Functional Status [...] blood pressure reading (796.2, R03.0) Status: Active Tachycardia (785.0, R00.0) Status: Active Shingles (053.9, B02.9) Status: Active Pharyngitis with viral syndrome (462, J02.9) Status: Active Left nephrolithiasis (592.0, N20.0) Status: Active Hypertension (401.9, I10) Status: Active Flu-like symptoms (780.99, R68.89) Status: Active Acute pharyngitis (462, J02.9) Status: Active Medications Name Dates Details ZyrTEC Allergy 10 MG Oral Capsule TAKE CAPSULE PRN Active Aquaphor External Ointment APPLY SPARINGLY TO AFFECTED AREA(S) 3 TIMES A DAY * Quantity: 1 Refills: 0 RENATE N.PCHICHI Abarca * Start : 22-Sep-2016 Active 50 GM Tube hydroCHLOROthiazide 12.5 MG Oral Capsule TAKE 1 CAPSULE ONCE DAILY. * Quantity: 90 Refills: 2 CLAUDIA MCNAIR M.D. * Start : 27-Mar-2017 Active Fluticasone Propionate 50 MCG/ACT Nasal Suspension USE 2 SPRAYS IN EACH NOSTRIL ONCE DAILY * Quantity: 1 Refills: 1 KAR Chirinos.AWA Mcginnis * Start : 29-Aug-2018 Active 16 GM Bottle Benzonatate 100 MG Oral Capsule 1-2 caps as needed every 8 hours wit mucinex DM or Delsym OTC. * Quantity: 30 Refills: 1 KAR Chirinos.AWA Mcginnis * Start : 29-Aug-2018 Active Acetaminophen-Codeine #3 300-30 MG Oral Tablet TAKE 1 TABLET 3 TIMES DAILY NEEDED FOR PAIN. * Quantity: 30 Refills: 0 ROSA QUIÑONEZ M.D. * Start : 12-Sep-2018 Active Tamsulosin HCl - 0.4 MG Oral Capsule TAKE 1 CAPSULE DAILY * Quantity: 30 Refills: 0 ROSA QUIÑONEZ M.D. * Start : 12-Sep-2018 Active Ondansetron HCl - 4 MG Oral Tablet TAKE 1 TABLET EVERY 8 HOURS PRN nausea * Quantity: 30 Refills: 2 ERI N.PEMANUEL Abarca * Start : 28-Nov-2018 End : 28-Dec-2018 Active predniSONE 10 MG Oral Tablet TAKE 3 TABLETS FOR 3 DAYS, 2 TABLETS FOR 3 DAYS, 1 TABLET FOR [address] OP * Quantity: 19 Refills: 0 HWANG N.P., EMANUEL * Start : 28-Nov-2018 Active Allergies and Adverse Reactions Name Dates [...] J06.9) Status: Resolved Procedures Procedure Dates Details History of Tonsillectomy With Adenoidectomy Completed History of Renal Lithotripsy Completed Immunization Name Dates Details Fluzone Quadrivalent Intramuscular Suspension Lot #: [id number] on: 18-Jan-2015 Family History Name Dates Details [...] smoker Vital Signs Date Test Result Details [id number] BP Systolic 157 mm[Hg] Status: Comments: Location: LUE; Position: Sitting BP Diastolic 115 mm[Hg] Status: Comments: Location: LUE; Position: Sitting Heart Rate 91 /min Status: Height 69 in Status: Weight 160 lb Status: Body Mass Index Calculated 23.63 kg/m2 Status: Body Surface Area Calculated 1.88 m2 Status: Temperature 98.9 f Status: Comments: Method: Temporal Respiration Rate 16 /min Status: Results Date Description Value Details [id number] [O] Influenza A and B, Rapid Method (In Office) INFLUENZA A & B Rapid neg (Normal) :34 [O] Streptococcus Test Rapid (In Office) Group A Strep Screen neg (Normal) Plan of Care Name Dates Details Planned Observations Planned Goals not documented Instructions Name Dates Details Instructions not documented Encounters Appointment; EMILY KAT M.D. Encounter Diagnosis: Problem not documented On: 27-Mar-2017 8:30 Appointment; CLAUDIA MCNAIR M.D. Encounter Diagnosis: Problem not documented On: 28-Mar-2017 14:20 Appointment; [facility] Encounter Diagnosis: Problem not [...] Diagnosis: Problem not documented On: 12-Sep-2018 9:30 Appointment; EMANUEL HWANG NP Encounter Diagnosis: Problem not documented On: 28-Nov-2018 16:00
[2019-01-31] MEDS: GENTAMICIN 80MG/NS 100 ML 200 ML IV ONE (09:46)
[2019-01-31 13:10] VITALS: BP 145/90
--- NOTE | 2019-04-07 00:34 | Operative Report ---
DATE OF PROCEDURE: 01/31/2019 SURGEON: Pancho Jimenez MD PREOPERATIVE DIAGNOSES: 1. Right nephrolithiasis. 2. Urinary tract infections. POSTOPERATIVE DIAGNOSES: 1. Right nephrolithiasis. 2. Urinary tract infections. OPERATIONS PERFORMED: 1. Staged right-sided extracorporeal shockwave lithotripsy (separate procedure performed for the right nephrolithiasis). 2. Cystourethroscopy with bilateral ureteral catheterization and retrograde ureteropyelography (separate procedure performed for the urinary tract infection). 3. Interpretation of retrograde ureteropyelography. 4. Supervision of fluoroscopy, no radiologist present. ANESTHESIA: General. COMPLICATIONS: None. CLINICAL SUMMARY: Drake Cassidy is a 33-year-old man with a left ureteral stricture with history of left ureteral stone. He also had urinary tract infection. He is brought for the above procedures. He is aware of the risks of bleeding, infection, injury to adjacent structures, need for additional procedures and elected to proceed. OPERATIVE PROCEDURE IN DETAIL: Informed consent was verified. Drake Cassidy was properly identified, taken to the operating room, placed on the lithotripsy table in supine position. Anesthesia was uneventfully begun. The patient's right lower pole nephrolithiasis was localized with biplanar fluoroscopy. A total of 3000 shocks were delivered with excellent fragmentation. The 21-New Zealander cystoscope sheath with the visual obturator in place was atraumatically inserted in the patient's urethra. It was guided down the unremarkable urethra, passed through normal sphincteric region through the normal prostate bed into the patient's normal bladder. Panendoscopy revealed no suspicious mucosal lesions, no tumors, no stones, and no diverticula. Normally positioned and configured ureteral orifices were identified. An 8-New Zealander catheter was used to cannulate each ureter and retrograde ureteral pyelograms were performed. Interpretation of retrograde ureteropyelography: Contrast was instilled in retrograde fashion bilaterally. On the left hand side, there were no tumors, no stones, no ureteral strictures. Unobstructed drainage was observed fluoroscopically. On the right-hand side, there was no hydronephrosis. Unobstructed drainage was observed fluoroscopically. There were filling defects in the lower pole of nely corresponding to the patient's stone and blood clots for management of the stone. The patient's bladder was drained. The cystoscope was withdrawn. Belladonna and opium suppositories were placed revealing a small prostate that is nonfluctuant without any nodules. The patient was then uneventfully reversed from anesthesia and taken to recovery room in stable condition. There were no complications to the procedure. The patient tolerated the procedure well. Ongoing urological followup is a must for metabolic stone workup and ongoing followup. Pancho MD ELIZABETH Jimenez/[place] /[id number]
== END | disposition home or self-care (01) ==
LOC: OR 08:34
PROVIDERS: ATTEND Urology
DX: N20.0 Calculus of kidney (principal); N39.0 Urinary tract infection, site not specified; N13.5 Crossing vessel and stricture of ureter without hydronephrosis; I10 Essential (primary) hypertension; Z01.810 Encounter for preprocedural cardiovascular examination; Z01.812 Encounter for preprocedural laboratory examination; Z01.818 Encounter for other preprocedural examination; Z87.01 Personal history of pneumonia (recurrent)
CPT/HCPCS: 36415; 50590; 74018; 80048; 93005; J0696; J1100; J1580; J2001; J2250; J2405; J2704; J3010; Q9967

== ENCOUNTER 2021-02-06 00:55 | Emergency (ER) | payer OTHER ==
[~2021-02-06] VITALS: Ht 177.8 cm; Wt 77.1 kg
[~2021-02-06 00:55] MED LIST changes: -ACETAMINOPHEN/CODEINE 300MG - 30MG TAB ONE; -B&O 60MG R/S 60 MG SUPP PR ONE; -CEFTRIAXONE SOD 1 GM/NS 50 ML 50 ML IV ONE; -DEXAMETHASONE SOD PHOS INJ 4 MG/ML VIAL ONE; -FENTANYL CITRATE/PF 100MCG/2 ML INJ ONE; -IOPAMIDOL 300MG/ML 50ML INFUS..BTL IV ONE; -LIDOCAINE HCL 2% LOCAL INJ 5 ML SDV VIAL INJ ONE; -MIDAZOLAM HCL 2 MG/2 ML VIAL ONE; -ONDANSETRON HCL INJ 2MG/ML 2ML 2 MG/ML VIAL ONE; -PROPOFOL IV EMULSION 10 MG/ML 20 ML VIAL ONE; -SEVOFLURANE INHAL SOLN 250 ML PEN BTL ONE
[2021-02-06 01:08] LABS: BASOPHILS % 0.5 % (0.0-1.0); EOSINOPHILS # (AUTO) 0.3 (0.0-0.4); EOSINOPHILS % 3.2 % (0.0-6.0); HEMOGLOBIN 13.4 g/dL (14.0-18.0); LYMPHOCYTES # (AUTO) 1.8 (1.0-3.2); LYMPHOCYTES % 21.3 % (18.0-39.1); MEAN CORPUSCULAR HGB CONC 33.5 g/dL (31-35); MEAN CORPUSCULAR VOLUME 89.7 fL (81-99); MONOCYTES # (AUTO) 0.8 (0.2-0.8); MONOCYTES % 9.4 % (4.4-11.3); NEUTROPHILS # (AUTO) 5.4 (2.1-6.9); NEUTROPHILS % 65.1 % (38.7-80.0); PLATELET COUNT 235 x10e3/uL (140-360); RED BLOOD COUNT 4.46 x10e6/uL (4.3-5.7); RED CELL DISTRIBUTION WIDTH 12.7 % (11.7-14.4)
[2021-02-06 01:34] LABS: ALANINE AMINOTRANSFERASE 34 IU/L (0-55); ALBUMIN 4.3 g/dL (3.5-5.0); ALBUMIN/GLOBULIN RATIO 1.5 (0.8-2.0); ALKALINE PHOSPHATASE 86 IU/L (40-150); BLOOD UREA NITROGEN 14 mg/dL (7-26); BUN/CREATININE RATIO 16 (6-25); CALCIUM 9.1 mg/dL (8.4-10.2); CARBON DIOXIDE 25 mmol/L (22-29); CHLORIDE 105 mmol/L (98-107); CREATINE KINASE 72 IU/L (30-200); EST GLOMERULAR FILTRATION RATE 96 ML/MIN (60-); GLUCOSE 103 mg/dL (74-118); SODIUM 138 mmol/L (136-145)
== END 2021-02-06 02:26 | disposition home or self-care (01) ==
LOC: ER 01:00
DX: R00.2 Palpitations (principal); Y93.83 Activity, rough housing and horseplay; Y92.008 Other place in unspecified non-institutional (private) residence as the place of occurrence of the external cause; I10 Essential (primary) hypertension
CPT/HCPCS: 36415; 71045; 80053; 82550; 82553; 84484; 85025; 93005; 99284

== ENCOUNTER 2024-06-04 23:11 | Inpatient (IN) | payer BC, OTHER ==
[~2024-06-04] VITALS: Ht 175.3 cm; Wt 77.1 kg
[2024-06-04 23:16] VITALS: TEMP 98.8
[2024-06-04] MEDS: KETOROLAC TROMETHAMINE 30 MG/ML VIAL IV STA (23:30)
[2024-06-04] MEDS: SODIUM CHLORIDE 0.9% 1000ML 1,000 ML IV ONE (23:30)
[2024-06-04] MEDS: DICYCLOMINE HCL 20 MG/2 ML VIAL IM ONE (23:31)
[2024-06-04] MEDS: ONDANSETRON HCL INJ 2MG/ML 2ML 2 MG/ML VIAL IV STA (23:31)
[2024-06-04 23:39] LABS: BASOPHILS % 0.2 % (0.0-1.0); EOSINOPHILS # (AUTO) 0.1 (0.0-0.4); EOSINOPHILS % 0.9 % (0.0-6.0); HEMATOCRIT 40.7 % (38.2-49.6); HEMOGLOBIN 13.7 g/dL (14.0-18.0); LYMPHOCYTES % 12.7 % (18.0-39.1); MEAN CORPUSCULAR HEMOGLOBIN 29.7 pg (28-32); MEAN CORPUSCULAR HGB CONC 33.7 g/dL (31-35); MEAN CORPUSCULAR VOLUME 88.1 fL (81-99); MONOCYTES # (AUTO) 0.8 (0.2-0.8); MONOCYTES % 9.3 % (4.4-11.3); NEUTROPHILS # (AUTO) 6.2 (2.1-6.9); PLATELET COUNT 298 x10e3/uL (140-360); RED BLOOD COUNT 4.62 x10e6/uL (4.3-5.7); RED CELL DISTRIBUTION WIDTH 12.6 % (11.7-14.4); WHITE BLOOD COUNT 8.17 x10e3/uL (4.8-10.8)
[2024-06-04 23:55] LABS: BACTERIA,URINE FEW /HPF; BILIRUBIN,URINE 1+ (NEGATIVE); CLARITY,URINE SL CLOUDY (CLEAR); COLOR,URINE YELLOW (YELLOW); EPITHELIAL CELLS,URINE FEW /LPF; GLUCOSE, URINE NEGATIVE (NEGATIVE); KETONES,URINE NEGATIVE (NEGATIVE); LEUKOCYTE ESTERASE ,URINE NEGATIVE (NEGATIVE); MUCUS,URINE MANY; NITRITE,URINE NEGATIVE (NEGATIVE); PH,URINE 6 (5 - 7); PROTEIN,URINE DIPSTICK NEGATIVE (NEGATIVE); RBC,URINE 0-5 /HPF (0-5)
[2024-06-05] VITALS (9 sets, daily range): BP systolic 108–120; BP diastolic 69–88; PULSE 54–85; RESP 17–20; TEMP 97.1–98.1; O2SAT 96–100
[2024-06-05 00:09] LABS: ALBUMIN 3.9 g/dL (3.5-5.0); ALBUMIN/GLOBULIN RATIO 1.1 (0.8-2.0); ANION GAP 13.9 mmol/L (8-16); BILIRUBIN,TOTAL 1.8 mg/dL (0.2-1.2); CREATININE, SERUM 0.94 mg/dL (0.72-1.25); POTASSIUM 3.9 mmol/L (3.5-5.1); TOTAL PROTEIN 7.3 g/dL (6.5-8.1)
[2024-06-05] MEDS ORDERED: IOPAMIDOL 370 MG/ML 100 ML INFUS..BTL INJ ONE (00:15)
[2024-06-05] MEDS: Morphine 4mg INJECTION 4 MG/ML INJ IV ONE (00:22)
[2024-06-05] MEDS ORDERED: Morphine 4mg INJECTION 4 MG/ML INJ IV PRN (02:15)
[2024-06-05] MEDS: SODIUM CHLORIDE 0.9% 1000ML 1,000 ML IV SCH (02:30)
[2024-06-05] MEDS: METRONIDAZOLE 500MG/NS 100ML 100 ML IV SCH (03:12)
[2024-06-05] MEDS ORDERED: POTASSIUM CITR15 MEQ PO (03:24)
[2024-06-05] MEDS ORDERED: METOPROLOL SUCC25 MG PO (03:24)
[2024-06-06] VITALS (8 sets, daily range): BP systolic 110–125; BP diastolic 68–85; PULSE 69–92; RESP 14–22; TEMP 97.9–98.6; O2SAT 95–100
[2024-06-06] MEDS: ONDANSETRON HCL INJ 2MG/ML 2ML 2 MG/ML VIAL IV PRN (00:03)
[2024-06-06] MEDS: PROMETHAZINE 12.5MG/ NACL 0.9% 12.5 MG/50 ML BAG IV PRN (05:37)
[2024-06-06 06:36] LABS: BASOPHILS % 0.4 % (0.0-1.0); EOSINOPHILS % 2.5 % (0.0-6.0); HEMATOCRIT 36.7 % (38.2-49.6); HEMOGLOBIN 12.5 g/dL (14.0-18.0); LYMPHOCYTES # (AUTO) 0.9 (1.0-3.2); LYMPHOCYTES % 16.2 % (18.0-39.1); MEAN CORPUSCULAR HEMOGLOBIN 30.1 pg (28-32); MEAN CORPUSCULAR HGB CONC 34.1 g/dL (31-35); MEAN CORPUSCULAR VOLUME 88.4 fL (81-99); MONOCYTES # (AUTO) 0.6 (0.2-0.8); MONOCYTES % 9.9 % (4.4-11.3); NEUTROPHILS # (AUTO) 3.9 (2.1-6.9); NEUTROPHILS % 69.9 % (38.7-80.0); PLATELET COUNT 228 x10e3/uL (140-360); RED BLOOD COUNT 4.15 x10e6/uL (4.3-5.7); RED CELL DISTRIBUTION WIDTH 13.1 % (11.7-14.4); WHITE BLOOD COUNT 5.63 x10e3/uL (4.8-10.8)
[2024-06-06 06:37] LABS: EOSINOPHILS # (AUTO) 0.1 (0.0-0.4)
[2024-06-06] MEDS ORDERED: FENTANYL CITRATE/PF 100MCG/2 ML INJ ONE (06:40)
[2024-06-06] MEDS ORDERED: MIDAZOLAM HCL 2 MG/2 ML VIAL ONE (06:40)
[2024-06-06] MEDS ORDERED: PROPOFOL IV EMULSION 10 MG/ML 20 ML VIAL ONE (06:40)
[2024-06-06] MEDS ORDERED: LIDOCAINE HCL 2% LOCAL INJ 5 ML SDV VIAL INJ ONE (06:40)
[2024-06-06] MEDS ORDERED: ROCURONIUM BROMIDE 1 ML IV ONE (06:40)
[2024-06-06] MEDS ORDERED: SEVOFLURANE INHAL SOLN 250 ML PEN BTL ONE (06:42)
[2024-06-06 09:04] LABS: ALBUMIN 3.3 g/dL (3.5-5.0); ALBUMIN/GLOBULIN RATIO 1.2 (0.8-2.0); ANION GAP 14.2 mmol/L (8-16); BILIRUBIN,TOTAL 5.2 mg/dL (0.2-1.2); CALCIUM 8.2 mg/dL (8.4-10.2); CREATININE, SERUM 0.9 mg/dL (0.72-1.25); POTASSIUM 4.2 mmol/L (3.5-5.1)
[2024-06-06] MEDS ORDERED: DEXAMETHASONE SOD PHOS INJ 4 MG/ML SDV ONE (09:30)
[2024-06-06] MEDS ORDERED: METOCLOPRAMIDE HCL 10 MG/2ML VIAL ONE (09:30)
[2024-06-06] MEDS ORDERED: ONDANSETRON HCL INJ 2MG/ML 2ML 2 MG/ML VIAL ONE (09:30)
[2024-06-06] MEDS ORDERED: ACETAMINOPHEN 1000 MG/100 ML 100 ML IV ONE (09:45)
[2024-06-06] MEDS ORDERED: HYDROMORPHONE 2MG/ML ONE (10:14)
[2024-06-06] MEDS ORDERED: SUGAMMADEX SODIUM 200 MG/2 ML VIAL IV ONE (10:30)
[2024-06-06] MEDS ORDERED: ACETAMINOPHEN 1000 MG/100 ML IV PRN (10:45)
[2024-06-06] MEDS ORDERED: HYDROMORPHONE 1MG/1ML INJ IV PRN (10:45)
[2024-06-06] MEDS ORDERED: HYDROCODONE/APAP 7.5MG-325MG 1 EA TAB PO PRN (10:45)
[2024-06-06] MEDS: ACETAMINOPHEN 325 MG TAB PO PRN (21:04)
[2024-06-07] VITALS: BP 124/93; PULSE 68; RESP 18; TEMP 98.6; O2SAT 97
[2024-06-07 04:00] VITALS: BP 132/96; PULSE 68; RESP 18; TEMP 98.6; O2SAT 97
[2024-06-07] MEDS: METOPROLOL SUCCINATE 25 MG TAB XL PO SCH (08:05)
[2024-06-07 08:36] VITALS: BP 159/102; PULSE 70; RESP 17; TEMP 98.6; O2SAT 96
[2024-06-07 08:55] LABS: BASOPHILS % 0.2 % (0.0-1.0); EOSINOPHILS # (AUTO) 0.1 (0.0-0.4); EOSINOPHILS % 0.9 % (0.0-6.0); HEMOGLOBIN 12.9 g/dL (14.0-18.0); LYMPHOCYTES # (AUTO) 1.1 (1.0-3.2); LYMPHOCYTES % 12.3 % (18.0-39.1); MEAN CORPUSCULAR HEMOGLOBIN 30.4 pg (28-32); MEAN CORPUSCULAR HGB CONC 33.1 g/dL (31-35); MONOCYTES # (AUTO) 0.5 (0.2-0.8); MONOCYTES % 4.9 % (4.4-11.3); NEUTROPHILS # (AUTO) 7.5 (2.1-6.9); NEUTROPHILS % 81.2 % (38.7-80.0); PLATELET COUNT 211 x10e3/uL (140-360); RED BLOOD COUNT 4.24 x10e6/uL (4.3-5.7); RED CELL DISTRIBUTION WIDTH 13.5 % (11.7-14.4); WHITE BLOOD COUNT 9.24 x10e3/uL (4.8-10.8)
[2024-06-07 09:13] LABS: ALBUMIN 3.4 g/dL (3.5-5.0); ALBUMIN/GLOBULIN RATIO 1.2 (0.8-2.0); ANION GAP 14.2 mmol/L (8-16); BILIRUBIN,TOTAL 2.7 mg/dL (0.2-1.2); CALCIUM 8.8 mg/dL (8.4-10.2); CREATININE, SERUM 0.91 mg/dL (0.72-1.25); POTASSIUM 4.2 mmol/L (3.5-5.1); TOTAL PROTEIN 6.2 g/dL (6.5-8.1)
[2024-06-07 11:30] VITALS: BP 141/99; PULSE 65; RESP 17; TEMP 97.7; O2SAT 97
== END 2024-06-07 15:30 | disposition home or self-care (01) | DRG 419 ==
LOC: ER 23:20 → ERHOLD 06-05 02:15 → MED/SURG 06-05 02:46
PROVIDERS: ADMIT Surgery; ATTEND Surgery
PROC: BF101ZZ Fluoroscopy of Bile Ducts using Low Osmolar Contrast (ICD-10-PCS; 2024-06-06)
PROC: 0FT44ZZ Resection of Gallbladder, Percutaneous Endoscopic Approach (ICD-10-PCS; principal; 2024-06-06 09:08)
DX: K80.00 Calculus of gallbladder with acute cholecystitis without obstruction (principal); I10 Essential (primary) hypertension; R74.8 Abnormal levels of other serum enzymes; Z87.442 Personal history of urinary calculi; Z79.899 Other long term (current) drug therapy
CPT/HCPCS: 36415; 74177; 74181; 74300; 76705; 80053; 81001; 83690; 85025; 88304; 94799; 99252; 99284; C1766; J1100; J1885; J2003; J2250; J2270; J2405; J2470; J2543; J2550; J2765; J7030; Q9967